=== PATIENT | female | born 1940 | race Caucasian/White ===

== ENCOUNTER 2017-05-27 16:07 | Emergency (ER) | payer MEDICARE, BC ==
--- NOTE | 2017-05-27 18:19 | RAD ---
TWO VIEWS CHEST: 05/27/17 PROVIDED CLINICAL HISTORY: Cough. FINDINGS: Comparison is made with the study dated 10/15/07. The cardiac and mediastinal silhouette is within norm al limits. There is no focal consolidation, pleural fluid or pneumothorax apparent. IMPRESSION: No evidence for an acute cardiopulmonary process. POS: H
== END 2017-05-27 17:32 | disposition home or self-care (01) ==
LOC: SCSER 16:07
DX: J06.9 Acute upper respiratory infection, unspecified (principal); I10 Essential (primary) hypertension; F41.9 Anxiety disorder, unspecified; Z79.899 Other long term (current) drug therapy
CPT/HCPCS: 71020